=== PATIENT | female | born 1940 | race Caucasian/White ===

== ENCOUNTER 2021-02-19 10:20 | Outpatient (CLI) | payer OTHER | END 2021-02-19 10:25 | disposition home or self-care (01) | LOC: RX STUDY 10:20 | PROVIDERS: ATTEND Internal Medicine Gastroenterology | DX: R13.14 Dysphagia, pharyngoesophageal phase (principal); R07.81 Pleurodynia; I70.0 Atherosclerosis of aorta; M47.893 Other spondylosis, cervicothoracic region; E11.69 Type 2 diabetes mellitus with other specified complication; E11.51 Type 2 diabetes mellitus with diabetic peripheral angiopathy without gangrene; R80.8 Other proteinuria; M06.4 Inflammatory polyarthropathy ==